=== PATIENT | female | born 1980 | race Caucasian/White ===

== ENCOUNTER 2023-04-22 09:10 | Emergency (ER) | payer BC ==
[~2023-04-22] VITALS: Ht 175.3 cm; Wt 104.3 kg
[2023-04-22 10:22] LABS: Source, Urine Clean Catch
[2023-04-22 10:27] LABS: Appearance, Urine Clear (Clear); Bilirubin, Urine Neg (Neg); Blood, Urine 1+ (Neg); Color, Urine Yellow (P-Yellow); Glucose Qualitative, Urine Neg (Neg); Ketones, Urine Neg (Neg); Leukocyte Esterase, Urine Neg (Neg); Nitrite, Urine Neg (Neg); Protein, Urine 1+ (Neg); Urobilinogen, Urine NORM (Normal)
[2023-04-22 10:31] LABS: BASOPHILS ABSOLUTE AUTO 0.04 K/mm3 (0.00-0.23); BASOPHILS PERCENT AUTO 1 % (0-2); EOSINOPHILS ABSOLUTE AUTO 0.15 K/mm3 (0.00-0.68); EOSINOPHILS PERCENT AUTO 2 % (0-6); Hematocrit 40.4 % (33.0-51.0); Hemoglobin 13.9 g/dL (11.5-16.0); IMMATURE GRAN ABSOLUTE AUTO 0.02 K/mm3 (0.00-0.10); IMMATURE GRAN PERCENT AUTO 0 % (0-1); LYMPHOCYTES ABSOLUTE AUTO 2.08 K/mm3 (0.84-5.20); LYMPHOCYTES PERCENT AUTO 33 % (21-46); MONOCYTES ABSOLUTE AUTO 0.32 K/mm3 (0.16-1.47); MONOCYTES PERCENT AUTO 5 % (4-13); Mean Corpuscular HGB 30.8 pg (26.0-34.0); Mean Corpuscular HGB Conc 34.4 g/dL (31.5-36.5); Mean Corpuscular Volume 90 fL (80-100); Mean Platelet Volume 9.9 fL (9.1-12.4); NEUTROPHILS ABSOLUTE AUTO 3.68 K/mm3 (1.96-9.15); NEUTROPHILS PERCENT AUTO 59 % (41-73); Platelet Count 272 K/mm3 (150-400); RDW Coefficient Variation 11.8 % (11.7-14.2); RDW Standard Deviation 38.5 fL (35.1-46.3); Red Blood Cell Count 4.51 M/mm3 (3.80-5.20); White Blood Cell Count 6.29 K/mm3 (4.00-11.30)
[2023-04-22 10:40] LABS: Red Blood Cells, Urine 0-2 /hpf (0-2); Squamous Epithelial Cells Mod /hpf (Few); White Blood Cells, Urine 0-2 /hpf (0-5)
[2023-04-22 10:41] LABS: Bacteria Many /hpf; Mucus Mod (0-Heavy)
[2023-04-22 11:05] LABS: Albumin, Blood 3.8 g/dL (3.4-5.0); Albumin/Globulin Ratio 1.1 (0.8-1.8); Bilirubin, Total 0.4 mg/dL (0.1-1.0); Bun/Creatinine Ratio 19.8 (12.0-20.0); Calcium, Blood 8.7 mg/dL (8.5-10.1); Creatinine, Blood 0.81 mg/dL (0.40-1.00); Globulin, Blood 3.6 g/dL (2.2-4.0); Potassium, Blood 3.9 mmol/L (3.5-5.5); Total Protein, Blood 7.4 g/dL (6.4-8.2)
[2023-04-22 12:00] VITALS: BP 138/79
[2023-04-22] MEDS ORDERED: DICY20 PO (12:06)
[2023-04-22] MEDS ORDERED: PROM25 PO (12:06)
== END 2023-04-22 12:15 | disposition home or self-care (01) ==
LOC: ER 09:10
PROVIDERS: Emergency Medicine
DX: R10.84 Generalized abdominal pain (principal); Z88.2 Allergy status to sulfonamides; Z88.8 Allergy status to other drugs, medicaments and biological substances; Z88.0 Allergy status to penicillin; Z91.040 Latex allergy status
CPT/HCPCS: 74177; 80053; 81001; 83690; 85025; 96374-59; 99284-25; J2405; J7030; Q9967

== ENCOUNTER 2025-01-11 06:28 | Emergency (ER) | payer BC ==
[~2025-01-11] VITALS: Ht 172.7 cm; Wt 90.3 kg
[~2025-01-11 06:28] MED LIST: DICY20 PO; PROM25 PO
[2025-01-11 07:55] LABS: BASOPHILS ABSOLUTE AUTO 0.02 K/mm3 (0.00-0.23); BASOPHILS PERCENT AUTO 0 % (0-2); EOSINOPHILS ABSOLUTE AUTO 0.06 K/mm3 (0.00-0.68); EOSINOPHILS PERCENT AUTO 1 % (0-6); Hematocrit 40.1 % (33.0-51.0); Hemoglobin 13.6 g/dL (11.5-16.0); IMMATURE GRAN ABSOLUTE AUTO 0.01 K/mm3 (0.00-0.10); IMMATURE GRAN PERCENT AUTO 0 % (0-1); LYMPHOCYTES ABSOLUTE AUTO 1.87 K/mm3 (0.84-5.20); LYMPHOCYTES PERCENT AUTO 27 % (21-46); MONOCYTES ABSOLUTE AUTO 0.47 K/mm3 (0.16-1.47); MONOCYTES PERCENT AUTO 7 % (4-13); Mean Corpuscular HGB 31.1 pg (26.0-34.0); Mean Corpuscular HGB Conc 33.9 g/dL (31.5-36.5); Mean Corpuscular Volume 92 fL (80-100); NEUTROPHILS ABSOLUTE AUTO 4.54 K/mm3 (1.96-9.15); NEUTROPHILS PERCENT AUTO 65 % (41-73); Platelet Count 234 K/mm3 (150-400); RDW Coefficient Variation 11.9 % (11.7-14.2); RDW Standard Deviation 39.2 fL (35.1-46.3); Red Blood Cell Count 4.38 M/mm3 (3.80-5.20); White Blood Cell Count 6.97 K/mm3 (4.00-11.30)
[2025-01-11] MEDS ORDERED: NS 1,000 ML IV SCH (08:05)
[2025-01-11 08:15] LABS: Albumin, Blood 3.6 g/dL (3.4-5.0); Albumin/Globulin Ratio 1.1 (0.8-1.8); Bilirubin, Total 0.5 mg/dL (0.1-1.0); Bun/Creatinine Ratio 16.1 (12.0-20.0); Calcium, Blood 8.8 mg/dL (8.5-10.1); Creatinine, Blood 0.87 mg/dL (0.40-1.00); Globulin, Blood 3.4 g/dL (2.2-4.0); Potassium, Blood 3.6 mmol/L (3.5-5.5)
[2025-01-11] MEDS ORDERED: Ampicillin Sod/Sulbactam Sod 1.5 GM in NS 100 ML IV ONE (08:25)
[2025-01-11] MEDS ORDERED: Clindamycin 600mg in D5W 50 ML IV ONE (08:50)
[2025-01-11 09:20] VITALS: BP 152/93
[2025-01-11] MEDS ORDERED: Ketorolac Tromethamine 15mg Vial IV ONE (09:25)
[2025-01-11] MEDS ORDERED: CLIN150 PO (09:25)
== END 2025-01-11 09:45 | disposition home or self-care (01) ==
LOC: ER 06:28
PROVIDERS: Emergency Medicine
DX: L03.012 Cellulitis of left finger (principal); I10 Essential (primary) hypertension; Z88.0 Allergy status to penicillin; Z88.2 Allergy status to sulfonamides; Z88.1 Allergy status to other antibiotic agents; Z91.040 Latex allergy status; Z79.899 Other long term (current) drug therapy
CPT/HCPCS: 11740; 80053; 85025; 86141; 96374-59; 96375-59; 99283-25; J0295; J1885; J7030

== ENCOUNTER 2025-01-12 17:06 | Emergency (ER) | payer BC ==
[~2025-01-12] VITALS: Ht 172.7 cm; Wt 89.4 kg
[~2025-01-12 17:06] MED LIST changes: +CLIN150 PO
[2025-01-12 17:56] LABS: BASOPHILS ABSOLUTE AUTO 0.02 K/mm3 (0.00-0.23); BASOPHILS PERCENT AUTO 0 % (0-2); EOSINOPHILS ABSOLUTE AUTO 0.06 K/mm3 (0.00-0.68); EOSINOPHILS PERCENT AUTO 1 % (0-6); Hematocrit 38.6 % (33.0-51.0); Hemoglobin 13.6 g/dL (11.5-16.0); IMMATURE GRAN ABSOLUTE AUTO 0.02 K/mm3 (0.00-0.10); IMMATURE GRAN PERCENT AUTO 0 % (0-1); LYMPHOCYTES ABSOLUTE AUTO 0.34 K/mm3 (0.84-5.20); LYMPHOCYTES PERCENT AUTO 5 % (21-46); MONOCYTES ABSOLUTE AUTO 0.36 K/mm3 (0.16-1.47); MONOCYTES PERCENT AUTO 5 % (4-13); Mean Corpuscular HGB 31.2 pg (26.0-34.0); Mean Corpuscular HGB Conc 35.2 g/dL (31.5-36.5); Mean Corpuscular Volume 89 fL (80-100); Mean Platelet Volume 9.9 fL (9.1-12.4); NEUTROPHILS PERCENT AUTO 89 % (41-73); Platelet Count 199 K/mm3 (150-400); RDW Coefficient Variation 11.5 % (11.7-14.2); RDW Standard Deviation 36.5 fL (35.1-46.3); Red Blood Cell Count 4.36 M/mm3 (3.80-5.20)
[2025-01-12 19:05] LABS: CORONAVIRUS COVID-19 AG Negative (NEGATIVE); INFLUENZA A AG Negative (NEGATIVE); INFLUENZA B AG Negative (NEGATIVE)
[2025-01-12 19:24] VITALS: BP 116/71
== END 2025-01-12 20:25 | disposition home or self-care (01) ==
LOC: ER 17:06
PROVIDERS: Emergency Medicine
DX: L03.012 Cellulitis of left finger (principal); R19.7 Diarrhea, unspecified; I10 Essential (primary) hypertension; Z88.0 Allergy status to penicillin; Z91.040 Latex allergy status; Z88.3 Allergy status to other anti-infective agents; Z88.2 Allergy status to sulfonamides; Z79.891 Long term (current) use of opiate analgesic; Z79.1 Long term (current) use of non-steroidal anti-inflammatories (NSAID); Z79.2 Long term (current) use of antibiotics
CPT/HCPCS: 83605; 85025; 87428-QW; 99283